=== PATIENT | female | born 1945 | race African-American/Black ===

== ENCOUNTER → 2020-03-31 | Emergency (ER) | payer MEDICARE ==
[~2020-03-31] VITALS: Ht 157.5 cm; Wt 46.3 kg
[~2020-03-31] MED LIST: HYDROmorphone HCL 2 MG/ML VL IV ONE; PANTOPRAZOLE 40 MG/10 ML VIAL INJ IV STA; SODIUM CHLORIDE 0.9% 500 ML IVB ONE
[2020-03-31 04:36] VITALS: BP 156/91
== END | disposition home or self-care (01) ==
LOC: ER 04:20 → EDBD 04:20
DX: R10.84 Generalized abdominal pain (principal); R11.2 Nausea with vomiting, unspecified; R30.9 Painful micturition, unspecified; E11.9 Type 2 diabetes mellitus without complications; I10 Essential (primary) hypertension; Z98.51 Tubal ligation status